=== PATIENT | female | born 1965 ===

== ENCOUNTER 2017-12-07 23:23 | Emergency (ER) | payer OTHER ==
[~2017-12-07] VITALS: Ht 154.9 cm; Wt 68.0 kg
[2017-12-07 23:41] VITALS: BP 172/92
== END 2017-12-08 03:38 | disposition home or self-care (01) ==
LOC: ER 23:23
DX: S13.4XXA Sprain of ligaments of cervical spine, initial encounter (principal); R51 Headache; M25.561 Pain in right knee; M25.562 Pain in left knee; V47.5XXA Car driver injured in collision with fixed or stationary object in traffic accident, initial encounter; Y93.89 Activity, other specified; Y99.8 Other external cause status; Y92.410 Unspecified street and highway as the place of occurrence of the external cause
CPT/HCPCS: 70450; 72125; 73562